=== PATIENT | male | born 1970 | race Hispanic/Latino ===

== ENCOUNTER 2021-05-16 22:47 | Emergency (ER) | payer SELFPAY ==
[2021-05-16] MEDS ORDERED: SODIUM CHLORIDE 0.9% 1000 ML 1,000 ML IV ONE ×2 (23:25→23:26)
--- NOTE | 2021-05-16 23:30 | Emergency Department Report ---
HPI - General Chief Complaint: Dyspnea/Respdistress Time Seen by Provider: 05/16/21 23:06 - HPI HPI: 50-year-old male with no known past medical history brought in by EMS after experiencing an episode of shortness of breath, paresthesias, and near syncope just prior to arrival. The patient states that he was at home taking his dogs out when all of a sudden he began to feel very short of breath and had tingling in his hands and feet. He tried to sit down and relax but he continued to feel short of breath and felt very lightheaded and warm as if he was about to pass out. He never lost consciousness or passed out but because the symptoms lasted for 10 minutes he decided to call 911. The symptoms waxed and waned until arrival to the emergency department after which they have mostly resolved. At this point he feels only very slightly lightheaded. He never experienced chest pain, palpitations, cough, or diaphoresis. He does state that he drinks 2 cups of coffee daily and has been intermittent fasting. The last time he ate was breakfast. He has had no recent surgery, travel, or prolonged immobilization. He denies any associated fever/chills, headache, neck pain, cough, fabrice pain, nausea/vomiting, focal weakness, confusion, or any other complaints. ED Past Medical Hx - Past Medical History Previous Medical History?: No ED Review of Systems ROS: Stated complaint: FEELING FAINT Other details as noted in HPI Constitutional: denies: chills, fever Eyes: denies: eye pain, eye discharge ENT: denies: throat pain, congestion Respiratory: shortness of breath (resolved). denies: cough Cardiovascular: other (near syncope). denies: chest pain, palpitations Gastrointestinal: denies: abdominal pain, nausea, vomiting Genitourinary: denies: dysuria, frequency Musculoskeletal: denies: back pain, myalgia Skin: denies: rash Neurological: paresthesias (resolved), other (lightheadedness). denies: headache, weakness, numbness Psychiatric: anxiety. denies: auditory hallucinations, visual hallucinations, homicidal thoughts, suicidal thoughts Physical Exam - Physical Exam Vital Signs: Vital Signs 05/16/21 05/17/21 05/17/21 23:00 00:00 00:16 Temperature 97.8 F Pulse Rate 92 H Respiratory 13 14 Rate Blood Pressure 115/71 Blood Pressure [Left] O2 Sat by Pulse 100 98 Oximetry 05/17/21 05/17/21 01:00 02:14 Temperature Pulse Rate 93 H 89 Respiratory 13 19 Rate Blood Pressure 105/69 Blood Pressure 120/77 [Left] O2 Sat by Pulse 100 98 Oximetry Physical Exam: GENERAL: Well developed and well nourished. No acute distress HEENT: Normocephalic. No obvious signs of trauma. Extremely dry mucous membranes. EYES: Extraocular movements are intact. Pupils are equal round and reactive to light bilaterally NECK: Supple. Trachea is midline. LUNGS: Nonlabored breathing. Equal chest rise bilaterally. Clear to auscultation bilaterally. HEART/CARDIOVASCULAR: Regular rate and rhythm. No murmurs or rubs. VASCULAR: 2+ peripheral pulses. Cap refill < 2 seconds ABDOMEN: Abdomen is soft and nondistended. There is no significant tenderness, guarding or rebound. SKIN: Skin is warm and dry NEURO: Patient is awake, alert, and oriented. tube room supervisor II-XII grossly intact. No focal deficits. Normal motor and sensory exam throughout. Normal speech. MUSCULOSKELETAL: No obvious deformities. No significant tenderness. Normal ROM throughout. ED Medical Decision Making - Lab Data Result diagrams: 05/16/21 23:43 05/16/21 23:43 Lab Results 05/16/21 05/16/21 05/16/21 Range/Units 23:43 23:43 23:43 WBC 9.2 (4.5-11.0) K/mm3 RBC 4.99 (3.65-5.03) M/mm3 Hgb 14.5 (11.8-15.2) gm/dl Hct 42.1 (35.5-45.6) % MCV 84 (84-94) fl MCH 29 (28-32) pg MCHC 34 (32-34) % RDW 14.8 (13.2-15.2) % Plt Count 190 (140-440) K/mm3 Lymph % (Auto) 13.2 L (13.4-35.0) % [place] % (Auto) 6.3 (0.0-7.3) % Eos % (Auto) 0.6 (0.0-4.3) % Baso % (Auto) 0.3 (0.0-1.8) % Lymph # (Auto) 1.2 (1.2-5.4) K/mm3 [place] # (Auto) 0.6 (0.0-0.8) K/mm3 Eos # (Auto) 0.1 (0.0-0.4) K/mm3 Baso # (Auto) 0.0 (0.0-0.1) K/mm3 Seg Neutrophils % 79.6 H (40.0-70.0) % Seg Neutrophils # 7.3 (1.8-7.7) K/mm3 D-Dimer < 135.00 (0-234) ng/mlDDU Sodium 138 (137-145) mmol/L Potassium 3.6 (3.6-5.0) mmol/L Chloride 100.1 (98-107) mmol/L Carbon Dioxide 25 (22-30) mmol/L Anion Gap 17 mmol/L BUN 20 (9-20) mg/dL Creatinine 1.0 (0.8-1.3) mg/dL Estimated GFR > 60 ml/min BUN/Creatinine Ratio 20 % Glucose 100 (75-100) mg/dL POC Glucose (70-105) mg/dL Calcium 9.3 (8.4-10.2) mg/dL Magnesium (1.7-2.3) mg/dL Total Bilirubin 0.30 (0.1-1.2) mg/dL Direct Bilirubin < 0.2 (0-0.2) mg/dL Indirect Bilirubin 0.1 mg/dL AST 24 (5-40) units/L ALT 17 (7-56) units/L Alkaline Phosphatase 72 (35-129) units/L Troponin T (0.00-0.029) ng/mL NT-Pro-B Natriuret Pep (0-900) pg/mL Total Protein 7.3 (6.3-8.2) g/dL Albumin 4.6 (3.9-5) g/dL Albumin/Globulin Ratio 1.7 % 05/16/21 05/17/21 Range/Units 23:43 00:24 WBC (4.5-11.0) K/mm3 RBC (3.65-5.03) M/mm3 Hgb (11.8-15.2) gm/dl Hct (35.5-45.6) % MCV (84-94) fl MCH (28-32) pg MCHC (32-34) % RDW (13.2-15.2) % Plt Count (140-440) K/mm3 Lymph % (Auto) (13.4-35.0) % [place] % (Auto) (0.0-7.3) % Eos % (Auto) (0.0-4.3) % Baso % (Auto) (0.0-1.8) % Lymph # (Auto) (1.2-5.4) K/mm3 [place] # (Auto) (0.0-0.8) K/mm3 Eos # (Auto) (0.0-0.4) K/mm3 Baso # (Auto) (0.0-0.1) K/mm3 Seg Neutrophils % (40.0-70.0) % Seg Neutrophils # (1.8-7.7) K/mm3 D-Dimer (0-234) ng/mlDDU Sodium (137-145) mmol/L Potassium (3.6-5.0) mmol/L Chloride (98-107) mmol/L Carbon Dioxide (22-30) mmol/L Anion Gap mmol/L BUN (9-20) mg/dL Creatinine (0.8-1.3) mg/dL Estimated GFR ml/min BUN/Creatinine Ratio % Glucose (75-100) mg/dL POC Glucose 92 (70-105) mg/dL Calcium (8.4-10.2) mg/dL Magnesium 1.90 (1.7-2.3) mg/dL Total Bilirubin (0.1-1.2) mg/dL Direct Bilirubin (0-0.2) mg/dL Indirect Bilirubin mg/dL AST (5-40) units/L ALT (7-56) units/L Alkaline Phosphatase (35-129) units/L Troponin T < 0.010 (0.00-0.029) ng/mL NT-Pro-B Natriuret Pep 140.2 (0-900) pg/mL Total Protein (6.3-8.2) g/dL Albumin (3.9-5) g/dL Albumin/Globulin Ratio % - EKG Data -: EKG Interpreted by Me - EKG Data 05/17/21 00:43 Normal sinus rhythm. Normal intervals. No ectopy. T wave inversions noted in leads II, III, and aVF. No significant ST segment abnormalities. - Radiology Data CHEST 1 VIEW 05/16/2021 10:50 PM INDICATION / CLINICAL INFORMATION: SOB. COMPARISON: None available. FINDINGS: SUPPORT DEVICES: None. HEART / MEDIASTINUM: No significant abnormality. LUNGS / PLEURA: No significant pulmonary or pleural abnormality. No pneumothorax. ADDITIONAL FINDINGS: No significant additional findings. IMPRESSION: 1. No acute findings. Signer Name: Mike Jacobs MD Signed: 05/16/2021 10:53 PM Workstation Name: [id number] - Medical Decision Making 50-year-old male with no known past medical history presents after sudden onset of an episode of shortness of breath and near syncope. The patient was at home when he began to feel short of breath, have paresthesias and tingling in his hands and feet as well as became lightheaded and felt as if he was about to pass out. He never did lose consciousness. He never did experience any chest pain. Upon arrival to the emergency department the patient's symptoms resolved with the exception of mild lightheadedness. Patient further admits to intermittent fasting and his last oral intake was at breakfast today. On physical examination, he has extremely dry mucous membranes. The remainder of his physical examination is within normal limits. Although I suspect that the patient's symptoms may be related to dehydration coupled with poor carbohydrate intake, we will nonetheless perform broad work-up with a full set of labs including troponin as well as D-dimer given that his heart rate is in the 90s to 100s. We will give 2 L of IV fluids and continue to reassess. On repeat assessment at 1:15 AM, the patient reports that his symptoms have enti rely resolved and he feels back to his normal self. Labs have resulted and reveal no significant leukocytosis or anemia. There are no significant electrolyte abnormalities. Kidney function is normal. Troponin is negative. BNP is negative. D-dimer is negative. Chest x-ray reveals no acute abno rmalities. IV fluids are still running. I discussed with the patient the fact that although initial labs are negative, we cannot rule out the possibility that his heart is a source of his symptoms/presentation, although the fact that he has had poor oral intake and was dehydrated on exam likely explains his presentation. I offered him repeat troponin but the patient declines this and says he wants to go home. He understands that refusing further cardiac enzymes confers certain risk of possible missed diagnoses, temporary/permanent disability, or even . He expressed understanding of this fact and still wants to go home. He will be discharged with instructions to follow-up within the next 1 to 2 days with a primary care doctor. He was encouraged to return to the emergency department should he develop any worsening or new concerning symptoms. Critical care attestation.: If time is entered above; I have spent that time in minutes in the direct care of this critically ill patient, excluding procedure time. ED Disposition Clinical Impression: Dehydration, Shortness of breath, Near syncope Disposition: DC-01 TO HOME OR SELFCARE Is pt being admited?: No Condition: Stable Instructions: Near-Syncope, Shortness of Breath, Adult, Rehydration, Adult, Dehydration, Adult Additional Instructions: Please return to the emergency department should you develop worsening symptoms, new chest pain, or any other new concerning symptoms. Please follow-up with a primary care doctor in 1 to 2 days. Continue to stay hydrated by drinking fluids containing electrolytes such as Gatorade or Pedialyte. Referrals: BRENDA MCMAHON MD [Staff Physician] - 2-3 Days
--- NOTE | 2021-05-16 23:58 | XRay Report ---
CHEST 1 VIEW 05/16/2021 10:50 PM INDICATION / CLINICAL INFORMATION: SOB. COMPARISON: None available. FINDINGS: SUPPORT DEVICES: None. HEART / MEDIASTINUM: No significant abnormality. LUNGS / PLEURA: No significant pulmonary or pleural abnormality. No pneumothorax. ADDITIONAL FINDINGS: No significant additional findings. IMPRESSION: 1. No acute findings. Signer Name: Mike Jacobs MD Signed: 05/16/2021 11:53 PM Workstation Name: [id number]
[2021-05-17 00:06] LABS: Basophils % (Auto) 0.3 % (0.0-1.8); Eosinophils # (Auto) 0.1 K/mm3 (0.0-0.4); Eosinophils % (Auto) 0.6 % (0.0-4.3); Hematocrit 42.1 % (35.5-45.6); Hemoglobin 14.5 gm/dl (11.8-15.2); Lymphocytes # (Auto) 1.2 K/mm3 (1.2-5.4); Lymphocytes % (Auto) 13.2 % (13.4-35.0); Mean Corpuscular HGB Conc 34 % (32-34); Mean Corpuscular Volume 84 fl (84-94); Monocytes # (Auto) 0.6 K/mm3 (0.0-0.8); Monocytes % (Auto) 6.3 % (0.0-7.3); Platelet Count 190 K/mm3 (140-440); Red Blood Count 4.99 M/mm3 (3.65-5.03); Red Cell Distribution Width 14.8 % (13.2-15.2)
[2021-05-17 00:27] LABS: Alanine Aminotransferase 17 units/L (7-56); Albumin 4.6 g/dL (3.9-5); BUN/Creatinine Ratio 20; Blood Urea Nitrogen 20 mg/dL (9-20); Calcium 9.3 mg/dL (8.4-10.2); Hemolysis Index 2
[2021-05-17 00:42] LABS: Bilirubin,Direct < 0.2 mg/dL (0-0.2)
[2021-05-17 02:15] VITALS: BP 120/77
--- NOTE | 2021-05-17 18:10 | Electrocardiograph Report ---
[facility] Test Date: 2021-05-16 Test Time: 23:05:37 Pat Name: ASHER BAIRD Department: Room: Gender: M [employer]igher: NURSE : 1970 Requested By: RASHEED KATHLEEN Order Number: [id number] Reading MD: Juan C Correa Measurements Intervals [place] Rate: 92 P: 57 GA: 126 QRS: 78 QRSD: 104 T: -18 QT: 385 QTc: 475 Interpretive Statements Sinus rhythm Nonspecific T wave abnormality No previous ECG available for comparison Electronically Signed On 05-17-2021 18:09:58 EDT by Juan C Correa
== END 2021-05-17 02:15 | disposition home or self-care (01) ==
LOC: ED 22:47
DX: E86.0 Dehydration (principal); R06.02 Shortness of breath; R55 Syncope and collapse; Z79.899 Other long term (current) drug therapy
CPT/HCPCS: 36415; 71045; 80048; 80076; 82962; 83735; 83880; 84484; 85025; 85379; 93005; 96360; 99284; J7030